=== PATIENT | male | born 1955 | race Caucasian/White ===

== ENCOUNTER → 2019-03-02 12:07 | Outpatient (BNVA) | payer MEDICARE, SELFPAY | PROVIDERS: Family Provider Family Medicine; PCP Family Medicine; Visit Provider Anesthesiology | DX: G89.29 Other chronic pain (principal); G99.2 Myelopathy in diseases classified elsewhere; M48.02 Spinal stenosis, cervical region; M50.90 Cervical disc disorder, unspecified, unspecified cervical region; Z79.891 Long term (current) use of opiate analgesic | CPT/HCPCS: 99213; 99214 ==

== ENCOUNTER → 2019-04-11 14:13 | Outpatient (BNVA) | payer MEDICARE, SELFPAY | PROVIDERS: Family Provider Family Medicine; PCP Family Medicine; Visit Provider Specialist | DX: G47.419 Narcolepsy without cataplexy (principal) | CPT/HCPCS: 99214 ==

== ENCOUNTER → 2019-07-31 14:38 | Outpatient (BNVA) | payer MEDICARE, MEDICAID, SELFPAY | PROVIDERS: Family Provider Family Medicine; PCP Family Medicine; Visit Provider Specialist | DX: G47.419 Narcolepsy without cataplexy (principal) | CPT/HCPCS: 99213 ==

== ENCOUNTER → 2019-11-13 14:18 | Outpatient (BNVA) | payer MEDICARE, SELFPAY | PROVIDERS: Family Provider Family Medicine; PCP Family Medicine; Visit Provider Specialist | DX: G47.419 Narcolepsy without cataplexy (principal); G54.0 Brachial plexus disorders | CPT/HCPCS: 99215 ==

== ENCOUNTER → 2019-11-19 09:34 | Outpatient (BNVA) | payer MEDICARE, MEDICAID, SELFPAY | PROVIDERS: Family Provider Family Medicine; PCP Family Medicine; Visit Provider Surgery | DX: Z11.59 Encounter for screening for other viral diseases (principal) | CPT/HCPCS: 87635 ==

== ENCOUNTER 2019-11-22 05:39 | Day surgery (SDC) | payer MEDICARE, MEDICAID, SELFPAY ==
[2019-11-21 12:22] VITALS: BMI 36.1
[2019-11-22] VITALS (7 sets, daily range): BP systolic 127–178; BP diastolic 77–104; PULSE 54–90; RESP 12–17; TEMP 36.6–36.9; O2SAT 93–99
[2019-11-22] MEDS: sodium chloride 0.9% 1,000 ML 30 ML IV (06:12)
--- NOTE | 2019-11-22 06:36 | ANES.PREANE2 ---
Pre-Anesthetic Assessment Pre-Anesthetic Assessment: Height/Weight: Height 1.83 m Weight 120.656 kg Temp Pulse Resp BP Pulse Ox 98.4 F 54 L 16 171/86 97 11/22/19 05:59 11/22/19 05:59 11/22/19 05:59 11/22/19 05:59 11/22/19 05:59 Preop Diagnosis: L inguinal hernia Proposed Procedure: Operation Date: 11/22/19 07:00 Proposed Procedures p Inguinal Hernia Repair left(Left) - Rick Briceño MD Familial anesthetic complications: None Was Beta Manas taken within 24 hours: N/A Last intake: Intake Last Liquid Date 11/21/19 Last Liquid Time 21:00 Last Solid Date 11/21/19 Last Solid Time 20:30 Social: Social History: No alcohol and No tobacco Exam: Pre-Anes Outpt Exam: alert, oriented x 3, clear to auscultation bilaterally and regular rate & rhythm Airway: Cervical ROM: WNL MP: 2 Dentition: Chipped and Other (missing teeth, poor dentition (rotting)) Additional comments: tsang CV/HEM: Comments: HR oftens runs in 50s, but he is asymptomatic and was told by one of our cardiologists many years ago it was nothing to worry about as long as he's functioning Anesthetic Plan: ASA status: 1 Anesthesia: General Risk of > 500 ml blood loss (7ml/kg in children): No Meds/Allergies Current Medications: Current Medications Generic Name Dose Route Start Last Admin Trade Name Freq PRN Reason Stop Dose Admin Sodium Chloride 1,000 mls @ 30 ml s/hr 11/22/19 06:00 11/22/19 06:12 Sodium Chloride 0.9% IV 11/23/19 05:59 30 mls/hr .Q24H HERNÁN Administration PFSH Anesthesia PFSH: Medical History (Updated 11/13/19 @ 16:14 by Gretta iVgil MD) Cervical disc disease Stenosis of cervical spine with myelopathy Family History Mother Cancer Diabetes Father Cancer CAD (coronary artery disease) Sister CAD (coronary artery disease) Social History Smoking and tobacco status: never smoked Alcohol intake: never Lives independently: Yes Marital status: Current occupational status: disabled History of recent travel: No Data Anesthesia Cardiac Studies: No Data to Display
--- NOTE | 2019-11-22 08:41 | W.PM.OPSUD ---
Surgery/Procedure H&P Update DATE OF PROCEDURE: November 22, 2019 DATE H&P PERFORMED: 11/13/19 H&P UPDATE INFORMATION: No changes to prior documentation PREOP DIAGNOSIS: L inguinal hernia PLANNED PROCEDURE: Operation Date: 11/22/19 07:00 Proposed Procedures p Inguinal Hernia Repair left(Left) - Rick Briceño MD
--- NOTE | 2019-11-22 09:40 | P.OP_ITS ---
Operative Report Date of procedure: November 22, 2019 Pre-op Diagnosis: Incarcerated left inguinal hernia. Post-op diagnosis: same (Indirect.) Procedure Done: Reduction and repair of incarcerated left inguinal hernia. Surgeon: Rick Briceño Anesthesia: General Estimated blood loss (mL): 10 Complications: None. Condition: stable Disposition: PACU Procedure: The patient was brought to the operating room and was placed in a sup ine position on the operating room table. General endotracheal anesthesia was induced. The left inguinal region was prepped and draped in a sterile fashion. A combination of 1% lidocaine and 0.5% bupivacaine with 1-200,000 parts epinephrine was used for local anesthesia throughout the procedure. A transverse incision was carried out above the level of the pubic tubercle. Cautery was used to divide the subcutaneous tissue down to the external oblique aponeurosis which was incised in parallel with its fibers over the inguinal canal. The spermatic cord was looped with a Jose Maria drain. An indirect hernia was found at the internal ring, with a large hernia sac extending all the way into the left hemiscrotum. The hernia sac was eventually reduced from the scrotum into the incision. The hernia sac and contents were carefully freed from the cord structures down to the internal ring and the hernia sac was reduced. The presence of the indirect hernia had obliterated almost the entire inguinal canal floor. An extra-large mesh plug was used to hold the hernia sac in a reduced position and was held in place with sutures of 0 Prolene that were used to connect the conjoined area medially to the reflecting edge of Poupart's ligament laterally, extending all the way down to the tubercle, reforming the inguinal canal floor. The onlay patch was anchored at the tubercle with a suture of 0 Prolene and was laid along the inguinal canal floor, allowing the cord structures to pass through the precut hole in the mesh. The two wings of mesh were sewn to each other above the level of the internal ring with a suture of 0 Prolene. The external oblique aponeurosis was closed over the top of the cord using a running suture of 3-0 Vicryl. The wound was irrigated with saline. The subcutaneous tissue was brought together with a simple suture of 3-0 Vicryl and the skin was approximated using a running subcuticular suture of 3-0 Vicryl. Benzoin and Steri-Strips were placed over the incision and a sterile bandage followed. The patient was taken to the recovery area in stable condition postoperatively.
[2019-11-22] MEDS: HYDROcodone-acetaminophen 5-325 mg Tablet 1 TAB PO (10:15)
--- NOTE | 2019-11-22 10:33 | ANE.PACU2 ---
Inpatient post-anesthesia follow up: Airway intact: Yes Vital signs: Temperature 97.9 F Pulse Rate 59 Respiratory Rate 16 Blood Pressure 127/77 Pulse Oximetry 95 Oxygen Delivery Me thod Room Air Oxygen Flow Rate 6 Fraction of Inspir ed Oxygen Hydration adequate: Yes Nausea and vomiting: No Pain level: 2 Mental status: Baseline
== END 2019-11-22 11:10 | disposition home or self-care (01) ==
PROVIDERS: PCP Family Medicine; Visit Provider Surgery
PROC: (CPT 49507; principal; 2019-11-22 07:00)
DX: K40.30 Unilateral inguinal hernia, with obstruction, without gangrene, not specified as recurrent (principal); I10 Essential (primary) hypertension; M19.90 Unspecified osteoarthritis, unspecified site; Z82.49 Family history of ischemic heart disease and other diseases of the circulatory system; Z83.3 Family history of diabetes mellitus
CPT/HCPCS: 49507; 12345; 96365; 96366; J0131; J0690; J1100; J1885; J2405; J2704; J2765; J3010; J3490; J7030

== ENCOUNTER → 2020-02-06 14:03 | Outpatient (BNVA) | payer MEDICARE, MEDICAID, SELFPAY | PROVIDERS: PCP Family Medicine; Visit Provider Specialist | DX: G47.419 Narcolepsy without cataplexy (principal); G54.0 Brachial plexus disorders; M48.02 Spinal stenosis, cervical region; G99.2 Myelopathy in diseases classified elsewhere; F98.8 Other specified behavioral and emotional disorders with onset usually occurring in childhood and adolescence; F31.9 Bipolar disorder, unspecified | CPT/HCPCS: 99214 ==

== ENCOUNTER → 2020-04-29 07:52 | Outpatient (BNVA) | payer MEDICARE, MEDICAID, SELFPAY | PROVIDERS: PCP Family Medicine; Visit Provider Specialist | DX: G47.419 Narcolepsy without cataplexy (principal); F31.9 Bipolar disorder, unspecified; G54.0 Brachial plexus disorders; Z80.9 Family history of malignant neoplasm, unspecified | CPT/HCPCS: 99213; 99214 ==

== ENCOUNTER → 2020-05-19 10:32 | Outpatient (BNVA) | payer MEDICARE, MEDICAID, SELFPAY | PROVIDERS: PCP Family Medicine; Visit Provider Internal Medicine | DX: Z01.812 Encounter for preprocedural laboratory examination (principal); Z12.11 Encounter for screening for malignant neoplasm of colon | CPT/HCPCS: 87635 ==

== ENCOUNTER 2020-05-23 07:28 | Day surgery (SDC) | payer MEDICARE, MEDICAID, SELFPAY ==
--- NOTE | 2020-05-23 07:38 | ANES.PREANE2 ---
Pre-Anesthetic Assessment Pre-Anesthetic Assessment: Height/Weight: Height 1.83 m Preop Diagnosis: Incarcerated left inguinal hernia. Proposed Procedure: Operation Date: 05/23/20 09:00 Proposed Procedures p Colonoscopy g0121 z12.11(Not Applicable) - Nacho Prieto MD Familial anesthetic complications: none Was Beta Manas taken within 24 hours: N/A Was Clonidine taken within 24 hours: N/A Last intake: > 8 hrs Social: Social History: No alcohol and No tobacco Exam: Pre-Anes Outpt Exam: alert, oriented x 3, clear to auscultation bilaterally and regular rate & rhythm Airway: Cervical ROM: WNL Dentition: Chipped and Other (poor teeth) Neuropsych: Neuropsych: Neuropathy Anesthetic Plan: ASA status: 2 Anesthesia: MAC Risk of > 500 ml blood loss (7ml/kg in children): No PFSH Anesthesia PFSH: Medical History (Updated 05/13/20 @ 14:40 by Nacho Prieto MD) Cervical disc disease Stenosis of cervical spine with myelopathy Family History Mother Cancer Diabetes Father Cancer CAD (coronary artery disease) Sister CAD (coronary artery disease) Social History Smoking and tobacco status: never smoked Alcohol intake: never Lives independently: Yes Marital status: Current occupational status: disabled History of recent travel: No Data Anesthesia Cardiac Studies: No Data to Display
[2020-05-23 08:03] VITALS: BP 173/85; PULSE 59; RESP 16; TEMP 37.3; O2SAT 98; BMI 35.2
[2020-05-23] MEDS: sodium chloride 0.9% 1,000 ML 30 ML IV (08:25)
--- NOTE | 2020-05-23 09:30 | W.PM.OPSUD ---
Surgery/Procedure H&P Update DATE OF PROCEDURE: May 23, 2020 DATE H&P PERFORMED: 05/13/20 PREOP DIAGNOSIS: Incarcerated left inguinal hernia. PLANNED PROCEDURE: Operation Date: 05/23/20 09:00 Proposed Procedures p Colonoscopy g0121 z12.11(Not Applicable) - Nacho Prieto MD
[2020-05-23 09:45] VITALS: BP 127/77; PULSE 69; RESP 16; TEMP 36.9; O2SAT 98
[2020-05-23 10:07] VITALS: BP 136/97; PULSE 68; RESP 16; O2SAT 95
--- NOTE | 2020-05-24 06:53 | ANE.PACU2 ---
Inpatient post-anesthesia follow up: Airway intact: Yes Vital signs: Temperature 98.4 F Pulse Rate 68 Respiratory Rate 16 Blood Pressure 136/97 Pulse Oximetry 95 Oxygen Delivery Me thod Room Air Oxygen Flow Rate Fraction of Inspir ed Oxygen Hydration adequate: Yes Nausea and vomiting: No Pain level: 2 Mental status: Baseline
== END 2020-05-23 10:15 | disposition home or self-care (01) ==
PROVIDERS: PCP Family Medicine; Visit Provider Internal Medicine
PROC: 0DJD8ZZ Inspection of Lower Intestinal Tract, Via Natural or Artificial Opening Endoscopic (ICD-10-PCS; CPT 45378; principal; 2020-05-23 09:00)
DX: Z12.11 Encounter for screening for malignant neoplasm of colon (principal); Z82.49 Family history of ischemic heart disease and other diseases of the circulatory system; Z83.3 Family history of diabetes mellitus
CPT/HCPCS: 96360; 96361; G0121; J2704; J3490; J7030

== ENCOUNTER → 2020-05-26 09:31 | Outpatient (BNVA) | payer MEDICARE, MEDICAID, SELFPAY | PROVIDERS: PCP Family Medicine; Visit Provider Psychiatry & Neurology Psychiatry | DX: G47.419 Narcolepsy without cataplexy (principal); F98.8 Other specified behavioral and emotional disorders with onset usually occurring in childhood and adolescence | CPT/HCPCS: 90792 ==

== ENCOUNTER → 2020-07-15 11:01 | Outpatient (BNVA) | payer MEDICARE, MEDICAID, SELFPAY | PROVIDERS: PCP Family Medicine; Visit Provider Psychiatry & Neurology Psychiatry | DX: F32.9 Major depressive disorder, single episode, unspecified (principal); G47.419 Narcolepsy without cataplexy; F98.8 Other specified behavioral and emotional disorders with onset usually occurring in childhood and adolescence | CPT/HCPCS: 99214 ==

== ENCOUNTER → 2020-09-02 09:26 | Outpatient (BNVA) | payer MEDICARE, MEDICAID, SELFPAY | PROVIDERS: PCP Family Medicine; Visit Provider Psychiatry & Neurology Psychiatry | DX: F32.9 Major depressive disorder, single episode, unspecified (principal); G47.419 Narcolepsy without cataplexy; F98.8 Other specified behavioral and emotional disorders with onset usually occurring in childhood and adolescence | CPT/HCPCS: 99214 ==

== ENCOUNTER → 2020-10-13 12:35 | Outpatient (BNVA) | payer MEDICARE, MEDICAID, SELFPAY | PROVIDERS: PCP Family Medicine; Visit Provider Specialist | DX: G47.419 Narcolepsy without cataplexy (principal) | CPT/HCPCS: 99213; 99214 ==

== ENCOUNTER → 2020-11-04 12:42 | Outpatient (BNVA) | payer MEDICARE, MEDICAID, SELFPAY | PROVIDERS: PCP Family Medicine; Visit Provider Psychiatry & Neurology Psychiatry | DX: F32.9 Major depressive disorder, single episode, unspecified (principal); F98.8 Other specified behavioral and emotional disorders with onset usually occurring in childhood and adolescence; G47.419 Narcolepsy without cataplexy | CPT/HCPCS: 99214 ==

== ENCOUNTER → 2021-01-06 14:28 | Outpatient (BNVA) | payer MEDICARE, MEDICAID, SELFPAY | PROVIDERS: PCP Family Medicine; Visit Provider Specialist | DX: G47.419 Narcolepsy without cataplexy (principal); Z79.899 Other long term (current) drug therapy | CPT/HCPCS: 99213 ==

== ENCOUNTER → 2021-01-13 12:08 | Outpatient (BNVA) | payer MEDICARE, MEDICAID, SELFPAY | PROVIDERS: PCP Family Medicine; Visit Provider Psychiatry & Neurology Psychiatry | DX: F32.9 Major depressive disorder, single episode, unspecified (principal); F98.8 Other specified behavioral and emotional disorders with onset usually occurring in childhood and adolescence; G47.419 Narcolepsy without cataplexy | CPT/HCPCS: 99213 ==

== ENCOUNTER → 2021-04-07 09:51 | Outpatient (BNVA) | payer MEDICARE, MEDICAID, SELFPAY | PROVIDERS: PCP Family Medicine; Visit Provider Specialist | DX: G47.419 Narcolepsy without cataplexy (principal); F31.9 Bipolar disorder, unspecified; Z79.899 Other long term (current) drug therapy | CPT/HCPCS: 36415; 80053; 84443; 85025; 99213; 99214 ==

== ENCOUNTER 2021-04-07 14:10 | Outpatient (CLI) | payer MEDICARE, MEDICAID, SELFPAY ==
[2021-04-07 14:36] LABS: Basophils % 0.2 %; Eosinophils # 0.2 10^3/uL (0.0-0.8); Eosinophils % 3.4 %; Hematocrit 47.4 % (42.0-52.0); Hemoglobin 15.4 g/dL (11.7-16.6); Lymphocytes # 1.9 10^3/uL (0.8-4.8); Lymphocytes % 30.7 %; Mean Corpuscular HGB Conc 32.5 g/dL (30.0-36.0); Mean Corpuscular Volume 92.4 fl (80-94); Mean Platelet Volume 9.1 fL (7.4-10.4); Monocytes # 0.5 10^3/uL (0.2-0.9); Monocytes % 7.6 %; Neutrophils # 3.56 10^3/uL (1.8-7.7); Neutrophils % 57.8 %; Nucleated Red Blood Cells % 0 %; Platelet Count 263 10^3/cmm (130-400); Red Blood Count 5.13 10^6/uL (4.1-5.3); Red Cell Distribution Width 13.2 % (12.1-15.1); White Blood Count 6.2 10^3/uL (4.0-10.0)
[2021-04-07 15:15] LABS: Alanine Aminotransferase 14 U/L (0-41); Albumin Level 4.4 g/dL (3.5-5.2); Alkaline Phosphatase 128 IU/L (40-130); Aspartate Amino Transferase 16 U/L (0-40); Blood Urea Nitrogen 11 mg/dL (8-23); Calcium 9.8 mg/dL (8.5-10.5); Carbon Dioxide 29 mmol/L (22-29); Chloride 104 mmol/L (98-107); Globulin 2.8 g/dL (1.3-4.6); Glomerular Filtration Rate 136.1 mL/min (90-130); Glucose 124 mg/dL (65-115); Osmolality Calculated 289 mOsm/kg (285-295); Sodium 139 mmol/L (136-145); Total Bilirubin 0.5 mg/dL (0.15-1.2); Total Protein 7.2 g/dL (6.6-8.7)
[2021-04-07 15:17] LABS: Thyroid Stimulating Hormone 1.25 uIU/mL (0.27-4.20)
== END 2021-04-07 14:11 | disposition home or self-care (01) ==
LOC: LAB 14:19
PROVIDERS: PCP Family Medicine; Visit Provider Specialist
DX: R20.0 Anesthesia of skin (principal); R20.2 Paresthesia of skin
CPT/HCPCS: 36415; 80053; 84443; 85025

== ENCOUNTER → 2021-06-30 10:20 | Outpatient (BNVA) | payer MEDICARE, MEDICAID, SELFPAY | PROVIDERS: PCP Family Medicine; Visit Provider Specialist | DX: G47.419 Narcolepsy without cataplexy (principal); G54.0 Brachial plexus disorders | CPT/HCPCS: 99213; 99214 ==

== ENCOUNTER → 2021-07-21 15:03 | Outpatient (BNVA) | payer MEDICARE, MEDICAID, SELFPAY | PROVIDERS: PCP Family Medicine; Visit Provider Psychiatry & Neurology Psychiatry | DX: F32.9 Major depressive disorder, single episode, unspecified (principal) | CPT/HCPCS: 99214 ==

== ENCOUNTER → 2021-09-09 13:50 | Outpatient (BNVA) | payer MEDICARE, MEDICAID, SELFPAY | PROVIDERS: PCP Family Medicine; Referring Provider Specialist; Visit Provider Specialist | DX: G54.0 Brachial plexus disorders (principal); G56.23 Lesion of ulnar nerve, bilateral upper limbs | CPT/HCPCS: 95910; 95913 ==

== ENCOUNTER → 2021-09-28 14:35 | Outpatient (BNVA) | payer MEDICARE, SELFPAY | PROVIDERS: PCP Family Medicine; Visit Provider Specialist | DX: G47.419 Narcolepsy without cataplexy (principal); G56.23 Lesion of ulnar nerve, bilateral upper limbs; G54.0 Brachial plexus disorders | CPT/HCPCS: 99213; 99214 ==

== ENCOUNTER → 2022-07-09 07:35 | Outpatient (BNVA) | payer MEDICARE, SELFPAY | PROVIDERS: PCP Family Medicine; Visit Provider Specialist | DX: G47.419 Narcolepsy without cataplexy (principal); Z79.899 Other long term (current) drug therapy | CPT/HCPCS: 99213 ==

== ENCOUNTER → 2022-08-03 08:04 | Outpatient (BNVA) | payer MEDICARE, SELFPAY | PROVIDERS: PCP Family Medicine; Visit Provider Specialist | DX: G47.419 Narcolepsy without cataplexy (principal); G54.0 Brachial plexus disorders | CPT/HCPCS: 99213 ==

== ENCOUNTER → 2023-01-04 11:37 | Outpatient (BNVA) | payer MEDICARE, SELFPAY | PROVIDERS: PCP Family Medicine; Visit Provider Psychiatry & Neurology Psychiatry | DX: G99.2 Myelopathy in diseases classified elsewhere (principal); M48.02 Spinal stenosis, cervical region | CPT/HCPCS: 80307 ==

== ENCOUNTER → 2023-01-10 09:42 | Outpatient (BNVA) | payer MEDICARE, SELFPAY | PROVIDERS: PCP Family Medicine; Visit Provider Specialist | DX: G47.419 Narcolepsy without cataplexy (principal) | CPT/HCPCS: 99214 ==

== ENCOUNTER 2023-08-10 20:00 | Outpatient (CLI) | payer MEDICARE, SELFPAY | END 2023-08-10 20:01 | disposition home or self-care (01) | LOC: SLEEP 08-11 06:25 | PROVIDERS: PCP Family Medicine; Visit Provider Specialist | DX: G47.419 Narcolepsy without cataplexy (principal) | CPT/HCPCS: 95810 ==

== ENCOUNTER 2023-10-27 15:03 | Emergency (ER) | payer MEDICARE, SELFPAY ==
[2023-10-27] VITALS (8 sets, daily range): BP systolic 120–149; BP diastolic 74–86; PULSE 59–84; RESP 16–18; TEMP 36.6; O2SAT 93–99; BMI 40.7
--- NOTE | 2023-10-27 16:09 | XRR_ITS ---
PROCEDURE INFORMATION: Exam: XR Chest Exam date and time: 10/27/2023 5:48 PM Age: 68 years old Clinical indication: Fever and shortness of breath; Additional info: Weakness TECHNIQUE: Imaging protocol: Radiologic exam of the chest. Views: 1 view. COMPARISON: CT cervical spine w con [id number] 02/08/2019 10:53 AM FINDINGS: Lungs: Unremarkable. No consolidation. Pleural spaces: Unremarkable. No pleural effusion. No pneumothorax. Heart/Mediastinum: Unremarkable. No cardiomegaly. Bones/joints: Unremarkable. Gastrointestinal tract: Interposed colon beneath the right diaphragm. XR/XR chest 1V portable [id number] IMPRESSION: No acute findings.
--- NOTE | 2023-10-27 16:10 | ECG_ITS ---
[facility] Test Date: 2023-10-27 Pat Name: Messi Espinal Department: Room: Gender: Male [employer]: : 1955 Requested By: Susan Helton Order Number: [id number] Staci MD: Brody Wharton M.D. Measurements Intervals [place] Rate: 61 P: 60 SC: 233 QRS: -23 QRSD: 101 T: 32 QT: 398 QTc: 402 Interpretive Statements SINUS RHYTHM WITH FIRST DEGREE AV BLOCK POSSIBLE ANTERIOR MYOCARDIAL INFARCTION , PROBABLY OLD [30 ms Q WAVE IN V3/V4, OR R < 0.2 mV IN V4] No previous ECG available for comparison Electronically Signed On 10-27-2023 18:03:58 CDT by Brody Wharton M.D. [email or web address]
[2023-10-27 16:43] LABS: Basophils % 0.2 %; Eosinophils # 0.1 10^3/uL (0.0-0.8); Eosinophils % 0.8 %; Hematocrit 50.7 % (37-53); Lymphocytes # 1.1 10^3/uL (0.8-4.8); Mean Corpuscular HGB Conc 32.9 g/dL (30-55); Mean Corpuscular Hemoglobin 30.4 pg (27-33); Mean Corpuscular Volume 92.2 fl (82-101); Mean Platelet Volume 9.7 fL (7.4-10.4); Monocytes # 1.1 10^3/uL (0.2-0.9); Monocytes % 15.8 %; Neutrophils # 4.39 10^3/uL (1.8-7.7); Neutrophils % 65.9 %; Nucleated Red Blood Cells % 0 %; Platelet Count 187 10^3/cmm (157-399); Red Cell Distribution Width 13.2 % (12.1-15.1); White Blood Count 6.65 10^3/uL (3.29-11.43)
[2023-10-27 17:02] LABS: Alanine Aminotransferase 14 U/L (0-41); Alkaline Phosphatase 87 U/L (40-130); Anion Gap 17.4 (5-19); Aspartate Amino Transferase 19 U/L (0-40); Blood Urea Nitrogen 19 mg/dL (8-23); Calcium 8.8 mg/dL (8.5-10.5); Carbon Dioxide 22 mmol/L (22-29); Chloride 105 mmol/L (98-107); Creatinine Clr Calc Pharmacy 83.7781; Globulin 2.6 g/dL (1.3-4.6); Glucose 120 mg/dL (65-115); Osmolality Calculated 293 mOsm/kg (285-295); Potassium 4.4 mmol/L (3.5-5.1); Sodium 140 mmol/L (136-145); Total Bilirubin 0.4 mg/dL (0.15-1.2); Total Protein 6.6 g/dL (6.6-8.7)
[2023-10-27 17:40] LABS: Glucose Point of Care 111 mg/dL (70-110)
--- NOTE | 2023-10-27 17:50 | W.ED.WEAKNES ---
Documented by User: Dale Fajardo DO 10/28/23 06:04 HPI - Weakness General: Chief complaint: Weakness Stated complaint: flu like symptoms Time Seen by Provider: 10/27/23 17:28 History of Present Illness: 68-year-old male presents to the emergency room with flulike symptoms been going on for a week. Patient syncopal episode at home witnessed by his roommate to come to eased him to the floor. He did not strike his head. Not on any anticoagulants. Said some loose stools had loss of bowel control in the emergency room no associated back pain had a low-grade fever at home no cough or shortness of breath. He has had some dysuria and concentrated urine. No hematochezia melena hematemesis coffee-ground emesis no chest pain Associated symptoms: Denies chest pain, chills, dysuria or fever(s) Review of Systems Const: Denies: fever(s) or chills Card: Denies: chest pain Resp: Denies: dyspnea GI: Reports: diarrhea; Denies: abdominal pain : Denies: dysuria, urinary frequency or urinary urgency Musc: Denies: neck pain or back pain Skin/Breast: Denies: rash PFSH ED PFSH: Medical History Narcolepsy Psychiatric care MDD (major depressive disorder) ADD (attention deficit disorder) Narcolepsy Cervical disc disease Stenosis of cervical spine with myelopathy Family History Mother Cancer Diabetes Father Cancer CAD (coronary artery disease) Sister CAD (coronary artery disease) Social History Smoking and tobacco/nicotine status: never used tobacco/nicotine Alcohol intake: never Substance/Drug Use: never Lives independently: Yes Marital status: Current occupational status: disabled Physical Exam Const: GENERAL APPEARANCE: cooperative ORIENTATION/CONSCIOUSNESS: Yes awake, Yes oriented to person, Yes oriented to place and Yes oriented to time HENMT: COMMON NORMALS: normocephalic, atraumatic and hearing grossly normal bilaterally HEAD & SCALP: normocephalic and atraumatic Resp: COMMON NORMALS: normal respiratory effort, No retractions, No use of accessory muscles and clear to auscultation bilaterally AUSCULTATION: clear to auscultation bilaterally Cardio: COMMON NORMALS: regular rate, regular rhythm and No murmurs present (Cardio) RATE: regular rate RHYTHM: regular rhythm GI: COMMON NORMALS: Soft to palpation and No hepatosplenomegaly present AUSCULTATION: Yes normoactive bowel sounds PALPATION: Yes Soft to palpation, No Tenderness to palpation present (GI), No Guarding due to palpation present (GI) and Yes No hepatosplenomegaly present Extremity: COMMON NORMALS: normal to inspection, capillary refill normal, no clubbing, cyanosis or edema, no calf tenderness and no pedal edema Neuro: SENSORIUM/ORIENTATION: Yes oriented to person, Yes oriented to place and Yes oriented to time Skin: COMMON NORMALS: no rashes or lesions noted GENERAL SKIN EXAM: no rashes or lesions noted Course Vital Signs: Vital signs: Vital Signs Temperature 98 F 10/27/23 15:49 Pulse Rate 60 10/27/23 20:58 Respiratory Rate 16 10/27/23 20:58 Blood Pressure 143/76 10/27/23 20:58 Pulse Oximetry 96 10/27/23 20:58 Oxygen Delivery Me thod Room Air 10/27/23 18:20 MDM - Weakness Medical Decision Making Care signed out to Dr. Belle at change of shift. See final notes for diagnosis and disposition. Lab Data 10/27/23 16:32 10/27/23 16:32 Radiology Impressions Chest X-Ray 10/27/23 16:09 IMPRESSION: No acute findings. Abdomen/Pelvis CT 10/27/23 17:56 IMPRESSION: 1. No acute findings. 2. 3.6 cm lesion in the posterior left kidney, likely with a layering hematocrit or debris level. This may represent a hemorrhagic cyst. Recommend non-emergent MRI without and with contrast or non-emergent CT without and with contrast. MRI is preferred for masses under 1.5 cm. COMMENTS: Consistent with the [employer]'s Incidental Findings Committee white paper (J Am Katie Radiol 2018): Any incidental renal lesion less than 1 cm or classified as too small to characterize, or any incidental cystic renal lesion characterized as simple-appearing, is likely benign. No follow-up imaging is recommended for these lesions per consensus recommendations based on imaging criteria. Head CT 10/27/23 17:56 IMPRESSION: No acute intracranial abnormality. Laboratory Results WBC 6.65 10^3/uL (3.29-11.43) 10/27/23 16: RBC 5.50 10^6/uL (3.85-5.65) 10/27/23 16:32 Hgb 16.70 g/dL (11.27-16.99) 10/27/23 16:32 Hct 50.7 % (37-53) 10/27/23 16:32 MCV 92.2 fl (82-101) 10/27/23 16:32 MCH 30.4 pg (27-33) 10/27/23 16:32 MCHC 32.9 g/dL (30-55) 10/27/23 16:32 RDW 13.2 % (12.1-15.1) 10/27/23 16:32 Plt Count 187 10^3/cmm (157-399) 10/27/23 16:32 MPV 9.7 fL (7.4-10.4) 10/27/23 16:32 Neut % (Auto) 65.9 % 10/27/23 16:32 Lymph % (Auto) 17.0 % 10/27/23 16:32 Rosebud % (Auto) 15.8 % 10/27/23 16:32 Eos % (Auto) 0.8 % 10/27/23 16:32 Baso % (Auto) 0.2 % 10/27/23 16:32 Neut # (Auto) 4.39 10^3/uL (1.8-7.7) 10/27/23 16:32 Lymph # (Auto) 1.1 10^3/uL (0.8-4.8) 10/27/23 16:32 Rosebud # (Auto) 1.1 10^3/uL (0.2-0.9) H 10/27/23 16:32 Eos # (Auto) 0.1 10^3/uL (0.0-0.8) 10/27/23 16:32 Baso # (Auto) 0.0 10^3/uL (0.0-0.1) 10/27/23 16:32 Nucleated RBC % (auto) 0 % 10/27/23 16:32 Nucleated RBCs # 0.0 /100WBC 10/27/23 16:32 Sodium 140 mmol/L (136-145) 10/27/23 16:32 Potassium 4.4 mmol/L (3.5-5.1) 10/27/23 16:32 Chloride 105 mmol/L (98-107) 10/27/23 16:32 Carbon Dioxide 22 mmol/L (22-29) 10/27/23 16:32 Anion Gap 17.4 (5-19) 10/27/23 16:32 BUN 19 mg/dL (8-23) 10/27/23 16:32 Creatinine 1.1 mg/dL (0.7-1.2) 10/27/23 16:32 GFR Calculation 67.0 mL/min (90-130) L 10/27/23 16:32 Glucose 120 mg/dL (65-115) H 10/27/23 16:32 POC Glucose 111 mg/dL (70-110) H 10/27/23 17:38 Calculated Osmolality 293 mOsm/kg (285-295) 10/27/23 16:32 Calcium 8.8 mg/dL (8.5-10.5) 10/27/23 16:32 Total Bilirubin 0.4 mg/dL (0.15-1.2) 10/27/23 16:32 AST 19 U/L (0-40) 10/27/23 16:32 ALT 14 U/L (0-41) 10/27/23 16:32 Alkaline Phosphatase 87 U/L (40-130) 10/27/23 16:32 Total Protein 6.6 g/dL (6.6-8.7) 10/27/23 16:32 Albumin 4.0 g/dL (3.5-5.2) 10/27/23 16:32 Globulin 2.6 g/dL (1.3-4.6) 10/27/23 16:32 Adenovirus (PCR) Not detected (NOT DETECT) 10/27/23 17:38 C. pneumoniae DNA (PCR) Not detected (NOT DETECT) 10/27/23 17:38 Coronavirus 229E (PCR) Not detected (NOT DETECT) 10/27/23 17:38 Human Metapneumovir PCR Not detected (NOT DETECT) 10/27/23 17:38 Influenza A (H1) PCR Not detected (NOT DETECT) 10/27/23 17:38 Influ A (H1/09) PCR Not detected (NOT DETECT) 10/27/23 17:38 Influenza A (H3) PCR Not detected (NOT DETECT) 10/27/23 17:38 Influenza Type A (PCR) Not detected (NOT DETECT) 10/27/23 17:38 Influenza Type B (PCR) Not detected (NOT DETECT) 10/27/23 17:38 M. pneumoniae (PCR) Not detected (NOT DETECT) 10/27/23 17:38 Parainfluenza 1 (PCR) Not detected (NOT DETECT) 10/27/23 17:38 Parainfluenza 2 (PCR) Not detected (NOT DETECT) 10/27/23 17:38 Parainfluenza 3 (PCR) Not detected (NOT DETECT) 10/27/23 17:38 Parainfluenza 4 (PCR) Not detected (NOT DETECT) 10/27/23 17:38 RSV Type A (PCR) Not detected (NOT DETECT) 10/27/23 17:38 RSV Type B (PCR) Not detected (NOT DETECT) 10/27/23 17:38 Entero/Rhino (PCR) Not detected (NOT DETECT) 10/27/23 17:38 SARS-CoV-2 (PCR) Detected (NOT DETECT) A 10/27/23 17:38 Discharge Plan Discharge Patient Disposition: Home Clinical Impression: COVID Condition: Stable Prescriptions: No Action bupropion HCl 300 mg tablet extended release 24 hr 300 mg PO QAM 90 Days Qty: 90 3RF gabapentin 300 mg capsule 300 mg PO TID 90 Days Qty: 270 3RF methylphenidate HCl 20 mg tablet See Rx Instructions .ROUTE .COMPLEX 30 Days Qty: 90 0RF Rx Instructions: do not fill until 02/07/2023 methylphenidate HCl [Ritalin] 20 mg tablet See Rx Instructions .ROUTE .COMPLEX 30 Days Qty: 90 0RF Rx Instructions: 2 in the morning and 1 at noon methylphenidate HCl 20 mg tablet See Rx Instructions .ROUTE .COMPLEX 30 Days Qty: 90 0RF Rx Instructions: take two tabs po q am and one tab po q noon. Discharge Orders: Discharge ED (Routine); Ordered 10/27/23 Ordered By: Harlan Belle Referrals: Reinaldo Simmons MD [Primary Care Provider] - 1 week Patient Instructions: COVID-19 (Coronavirus Disease 2019) (ED) Activity Restrictions/Additional Instructions: Thank you for choosing [facility] for your healthcare needs today. Please realize that you were seen in the emergency department and that we are providing you with an emergency medical screening exam and this may not be a complete and all exclusive of all testing and/or medical workup we may need to determine your element or severity of your illness. It is very important that you follow-up as instructed with your primary care provider or specialist for the additional evaluation and to discuss your medical treatment plan. You may return to the emergency department should you have concerns or if your condition changes or worsens in any way. Coding Level of Care Code ED Geographic Information Systems Analyst for Chg Fwd Related Data Previous Rx's Medication Instructions Recorded methylphenidate HCl 20 mg tablet See Rx Instructions .Route 02/17/23 .COMPLEX 30 days #90 tabs methylphenidate HCl 20 mg tablet See Rx Instructions .Route 02/17/23 (Ritalin) .COMPLEX 1 month #90 tabs bupropion HCl 300 mg 24 hr tablet, 300 mg PO QAM 90 days #90 tabs 04/28/23 extended release gabapentin 300 mg capsule 300 mg PO TID 90 days #270 caps 04/28/23 methylphenidate HCl 20 mg tablet See Rx Instructions .Route 10/07/23 .COMPLEX 1 month #90 tabs Allergies Allergy/AdvReac Type Severity Reaction Status Date / Time No Known Allergies Allergy Verified 01/10/23 09:57 Documented by User: Harlan Belle DO 10/28/23 00:27 HPI - Weakness General: Chief complaint: Weakness Stated complaint: flu like symptoms Time Seen by Provider: 10/27/23 17:28 [facility] ED PFSH: Medical History Narcolepsy Psychiatric care MDD (major depressive disorder) ADD (attention deficit disorder) Narcolepsy Cervical disc disease Stenosis of cervical spine with myelopathy Family History Mother Cancer Diabetes Father Cancer CAD (coronary artery disease) Sister CAD (coronary artery disease) Social History Smoking and tobacco/nicotine status: never used tobacco/nicotine Alcohol intake: never Substance/Drug Use: never Lives independently: Yes Marital status: Current occupational status: disabled Course Vital Signs: Vital signs: Vital Signs Temperature 98 F 10/27/23 15:49 Pulse Rate 60 10/27/23 20:58 Respiratory Rate 16 10/27/23 20:58 Blood Pressure 143/76 10/27/23 20:58 Pulse Oximetry 96 10/27/23 20:58 Oxygen Delivery Me thod Room Air 10/27/23 18:20 MDM - Weakness Medical Decision Making Care signed out to Dr. Belle at change of shift. See final notes for diagnosis and disposition. Care turned over myself at shift change, was waiting for lab work to come back, all lab work is back and CT scan back all essentially is which is benign except for positive COVID. These results was discussed with the patient and his son. Patient be discharged home Lab Data 10/27/23 16:32 10/27/23 16:32 Radiology Impressions Chest X-Ray 10/27/23 16:09 IMPRESSION: No acute findings. Abdomen/Pelvis CT 10/27/23 17:56 IMPRESSION: 1. No acute findings. 2. 3.6 cm lesion in the posterior left kidney, likely with a layering hematocrit or debris level. This may represent a hemorrhagic cyst. Recommend non-emergent MRI without and with contrast or non-emergent CT without and with contrast. MRI is preferred for masses under 1.5 cm. COMMENTS: Consistent with the [employer]'s Incidental Findings Committee white paper (J Am Katie Radiol 2018): Any incidental renal lesion less than 1 cm or classified as too small to characterize, or any incidental cystic renal lesion characterized as simple-appearing, is likely benign. No follow-up imaging is recommended for these lesions per consensus recommendations based on imaging criteria. Head CT 10/27/23 17:56 IMPRESSION: No acute intracranial abnormality. Laboratory Results WBC 6.65 10^3/uL (3.29-11.43) 10/27/23 16:32 RBC 5.50 10^6/uL (3.85-5.65) 10/27/23 16:32 Hgb 16.70 g/dL (11.27-16.99) 10/27/23 16:32 Hct 50.7 % (37-53) 10/27/23 16:32 MCV 92.2 fl (82-101) 10/27/23 16:32 MCH 30.4 pg (27-33) 10/27/23 16: MCHC 32.9 g/dL (30-55) 10/27/23 16:32 RDW 13.2 % (12.1-15.1) 10/27/23 16:32 Plt Count 187 10^3/cmm (157-399) 10/27/23 16:32 MPV 9.7 fL (7.4-10.4) 10/27/23 16:32 Neut % (Auto) 65.9 % 10/27/23 16:32 Lymph % (Auto) 17.0 % 10/27/23 16:32 Rosebud % (Auto) 15.8 % 10/27/23 16:32 Eos % (Auto) 0.8 % 10/27/23 16:32 Baso % (Auto) 0.2 % 10/27/23 16:32 Neut # (Auto) 4.39 10^3/uL (1.8-7.7) 10/27/23 16:32 Lymph # (Auto) 1.1 10^3/uL (0.8-4.8) 10/27/23 16:32 Rosebud # (Auto) 1.1 10^3/uL (0.2-0.9) H 10/27/23 16:32 Eos # (Auto) 0.1 10^3/uL (0.0-0.8) 10/27/23 16:32 Baso # (Auto) 0.0 10^3/uL (0.0-0.1) 10/27/23 16:32 Nucleated RBC % (auto) 0 % 10/27/23 16: Nucleated RBCs # 0.0 /100WBC 10/27/23 16:32 Sodium 140 mmol/L (136-145) 10/27/23 16:32 Potassium 4.4 mmol/L (3.5-5.1) 10/27/23 16:32 Chloride 105 mmol/L (98-107) 10/27/23 16:32 Carbon Dioxide 22 mmol/L (22-29) 10/27/23 16:32 Anion Gap 17.4 (5-19) 10/27/23 16:32 BUN 19 mg/dL (8-23) 10/27/23 16:32 Creatinine 1.1 mg/dL (0.7-1.2) 10/27/23 16:32 GFR Calculation 67.0 mL/min (90-130) L 10/27/23 16:32 Glucose 120 mg/dL (65-115) H 10/27/23 16:32 POC Glucose 111 mg/dL (70-110) H 10/27/23 17:38 Calculated Osmolality 293 mOsm/kg (285-295) 10/27/23 16:32 Calcium 8.8 mg/dL (8.5-10.5) 10/27/23 16:32 Total Bilirubin 0.4 mg/dL (0.15-1.2) 10/27/23 16:32 AST 19 U/L (0-40) 10/27/23 16:32 ALT 14 U/L (0-41) 10/27/23 16:32 Alkaline Phosphatase 87 U/L (40-130) 10/27/23 16:32 Total Protein 6.6 g/dL (6.6-8.7) 10/27/23 16:32 Albumin 4.0 g/dL (3.5-5.2) 10/27/23 16:32 Globulin 2.6 g/dL (1.3-4.6) 10/27/23 16:32 Adenovirus (PCR) Not detected (NOT DETECT) 10/27/23 17:38 C. pneumoniae DNA (PCR) Not detected (NOT DETECT) 10/27/23 17:38 Coronavirus 229E (PCR) Not detected (NOT DETECT) 10/27/23 17:38 Human Metapneumovir PCR Not detected (NOT DETECT) 10/27/23 17:38 Influenza A (H1) PCR Not detected (NOT DETECT) 10/27/23 17:38 Influ A (H1/09) PCR Not detected (NOT DETECT) 10/27/23 17:38 Influenza A (H3) PCR Not detected (NOT DETECT) 10/27/23 17:38 Influenza Type A (PCR) Not detected (NOT DETECT) 10/27/23 17:38 Influenza Type B (PCR) Not detected (NOT DETECT) 10/27/23 17:38 M. pneumoniae (PCR) Not detected (NOT DETECT) 10/27/23 17:38 Parainfluenza 1 (PCR) Not detected (NOT DETECT) 10/27/23 17:38 Parainfluenza 2 (PCR) Not detected (NOT DETECT) 10/27/23 17:38 Parainfluenza 3 (PCR) Not detected (NOT DETECT) 10/27/23 17:38 Parainfluenza 4 (PCR) Not detected (NOT DETECT) 10/27/23 17:38 RSV Type A (PCR) Not detected (NOT DETECT) 10/27/23 17:38 RSV Type B (PCR) Not detected (NOT DETECT) 10/27/23 17:38 Entero/Rhino (PCR) Not detected (NOT DETECT) 10/27/23 17:38 SARS-CoV-2 (PCR) Detected (NOT DETECT) A 10/27/23 17:38 All radiology interpretation(s) finalized by discharge Discharge Plan Discharge Patient Disposition: Home Clinical Impression: COVID Condition: Stable Prescriptions: No Action bupropion HCl 300 mg tablet extended release 24 hr 300 mg PO QAM 90 Days Qty: 90 3RF gabapentin 300 mg capsule 300 mg PO TID 90 Days Qty: 270 3RF methylphenidate HCl 20 mg tablet See Rx Instructions .ROUTE .COMPLEX 30 Days Qty: 90 0RF Rx Instructions: do not fill until 02/07/2023 methylphenidate HCl [Ritalin] 20 mg tablet See Rx Instructions .ROUTE .COMPLEX 30 Days Qty: 90 0RF Rx Instructions: 2 in the morning and 1 at noon methylphenidate HCl 20 mg tablet See Rx Instructions .ROUTE .COMPLEX 30 Days Qty: 90 0RF Rx Instructions: take two tabs po q am and one tab po q noon. Discharge Orders: Discharge ED (Routine); Ordered 10/27/23 Ordered By: Harlan Belle Referrals: Reinaldo Simmons MD [Primary Care Provider] - 1 week Patient Instructions: COVID-19 (Coronavirus Disease 2019) (ED) Activity Restrictions/Additional Instructions: Thank you for choosing [facility] for your healthcare needs today. Please realize that you were seen in the emergency department and that we are providing you with an emergency medical screening exam and this may not be a complete and all exclusive of all testing and/or medical workup we may need to determine your element or severity of your illness. It is very important that you follow-up as instructed with your primary care provider or specialist for the additional evaluation and to discuss your medical treatment plan. You may return to the emergency department should you have concerns or if your condition changes or worsens in any way. Coding Level of Care Code ED Geographic Information Systems Analyst for Otf Fwd Related Data Previous Rx's Medication Instructions Recorded methylphenidate HCl 20 mg tablet See Rx Instructions .Route 02/17/23 .COMPLEX 30 days #90 tabs methylphenidate HCl 20 mg tablet See Rx Instructions .Route 02/17/23 (Ritalin) .COMPLEX 1 month #90 tabs bupropion HCl 300 mg 24 hr tablet, 300 mg PO QAM 90 days #90 tabs 04/28/23 extended release gabapentin 300 mg capsule 300 mg PO TID 90 days #270 caps 04/28/23 methylphenidate HCl 20 mg tablet See Rx Instructions .Route 10/07/23 .COMPLEX 1 month #90 tabs Allergies Allergy/AdvReac Type Severity Reaction Status Date / Time No Known Allergies Allergy Verified 01/10/23 09:57
--- NOTE | 2023-10-27 17:56 | CTR_ITS ---
PROCEDURE INFORMATION: Exam: CT Abdomen And Pelvis Without Contrast Exam date and time: 10/27/2023 6:10 PM Age: 68 years old Clinical indication: Abdominal pain TECHNIQUE: Imaging protocol: Computed tomography of the abdomen and pelvis without contrast. Radiation optimization: All CT scans at this facility use at least one of these dose optimization techniques: automated exposure control; mA and/or kV adjustment per patient size (includes targeted exams where dose is matched to clinical indication); or iterative reconstruction. COMPARISON: CR (CHEST, ) 10/27/2023 5:48 PM RADIATION DOSE METRICS: Total DLP (mGy-cm): 1218 FINDINGS: Limitations: Streak artifact is present due to the patient's arms which were left at the side. Liver: Normal. No mass. Gallbladder and biliary ducts: Normal. No calcified stones. No ductal dilation. Pancreas: Normal. No ductal dilation. Spleen: Normal. No splenomegaly. Adrenal glands: Normal. No mass. Kidneys and ureters: 3.6 cm lesion in the posterior left kidney appears to have a layering hematocrit or debris level with the lower level measuring 43 Hounsfield units. The kidneys are otherwise unremarkable. No calculus or hydronephrosis. Stomach and bowel: Unremarkable. No obstruction. No mucosal thickening. Appendix: The appendix is visualized and is normal. Intraperitoneal space: Unremarkable. No free air. No significant fluid collection. Vasculature: Calcified plaque at the origins of the right and left renal arteries. No aneurysm. Lymph nodes: Unremarkable. No enlarged lymph nodes. Urinary bladder: Unremarkable as visualized. Reproductive: Unremarkable as visualized. Bones/joints: Degenerative changes and mild curvature in the spine. No acute fracture. Soft tissues: Small fat containing left inguinal hernia. CT/CT abdomen pelvis wo con [id number] IMPRESSION: 1. No acute findings. 2. 3.6 cm lesion in the posterior left kidney, likely with a layering hematocrit or debris level. This may represent a hemorrhagic cyst. Recommend non-emergent MRI without and with contrast or non-emergent CT without and with contrast. MRI is preferred for masses under 1.5 cm. COMMENTS: Consistent with the [employer]'s Incidental Findings Committee white paper (J Am Katie Radiol 2018): Any incidental renal lesion less than 1 cm or classified as too small to characterize, or any incidental cystic renal lesion characterized as simple-appearing, is likely benign. No follow-up imaging is recommended for these lesions per consensus recommendations based on imaging criteria.
--- NOTE | 2023-10-27 17:56 | CTR_ITS ---
PROCEDURE INFORMATION: Exam: CT Head Without Contrast Exam date and time: 10/27/2023 6:07 PM Age: 68 years old Clinical indication: Syncope and collapse TECHNIQUE: Imaging protocol: Computed tomography of the head without contrast. Radiation optimization: All CT scans at this facility use at least one of these dose optimization techniques: automated exposure control; mA and/or kV adjustment per patient size (includes targeted exams where dose is matched to clinical indication); or iterative reconstruction. COMPARISON: CT cervical spine w con [id number] 02/08/2019 10:53 AM RADIATION DOSE METRICS: Total DLP (mGy-cm): 1213 FINDINGS: Brain: No evidence for acute intracranial hemorrhage, mass effect, or acute infarct by CT. Mild generalized cerebral and cerebellar atrophy and mild presumed chronic small-vessel ischemic changes in the cerebral white matter. Small incidental arachnoid cyst along the anterior left middle cranial fossa. Cerebral ventricles: No ventriculomegaly. Pituitary gland and sella: Partially empty sella likely incidental. Paranasal sinuses: Visualized sinuses are unremarkable. No fluid levels. Mastoid air cells: Visualized mastoid air cells are well aerated. Bones: Unremarkable. No acute fracture. Soft tissues: Unremarkable. CT/CT head wo con* [id number] IMPRESSION: No acute intracranial abnormality.
[2023-10-27] MEDS: sodium chloride 0.9% 1,000 ML 999 ML IV (18:24)
[2023-10-27 20:44] LABS: Adenovirus Not Detected (NOT DETECT); Chlamydia Pneumoniae Not Detected (NOT DETECT); Coronavirus 229E,HKU1,NL63,OC4 Not Detected (NOT DETECT); Human Metapneumovirus Not Detected (NOT DETECT); Human Rhinovirus/Enterovirus Not Detected (NOT DETECT); Influenza A Not Detected (NOT DETECT); Influenza A H1 Not Detected (NOT DETECT); Influenza A H1-2009 Not Detected (NOT DETECT); Influenza A H3 Not Detected (NOT DETECT); Influenza B Not Detected (NOT DETECT); Mycoplasma Pneumoniae Not Detected (NOT DETECT); Parainfluenza Virus Type 1 Not Detected (NOT DETECT); Parainfluenza Virus Type 2 Not Detected (NOT DETECT); Parainfluenza Virus Type 3 Not Detected (NOT DETECT); Parainfluenza Virus Type 4 Not Detected (NOT DETECT); Respiratory Syncytial Virus A Not Detected (NOT DETECT); Respiratory Syncytial Virus B Not Detected (NOT DETECT)
[2023-10-27 20:46] LABS: SARS-COV-2 Detected (NOT DETECT)
== END 2023-10-27 21:05 | disposition home or self-care (01) ==
PROVIDERS: Emergency Medicine; Family Medicine; Emergency Provider Emergency Medicine; PCP Family Medicine
DX: U07.1 COVID-19 (principal)
CPT/HCPCS: 36415; 36416; 70450; 71045; 74176; 80053; 82962; 85025; 87486; 87581; 87633; 93005; 96365; 96366; 99285; J7030